=== PATIENT | female | born 1990 | race Caucasian/White ===

== ENCOUNTER 2016-08-18 17:50 | Emergency (ER) | payer OTHER ==
[~2016-08-18] VITALS: Ht 152.4 cm; Wt 59.9 kg
[~2016-08-18 17:50] MED LIST: ENDOCET 5-3251 EACH PO; IBUPROFEN800 MG PO; PRENATAL TABLE1 EAC3 PO; ZOFRAN ODT4 MG PO
[2016-08-18 18:54] LABS: HEMATOCRIT 42.1 % (36.0-46.0); MCHC 33.5 G/DL (30.0-36.0); MCV 86.6 FL (83-99); MEAN PLAT.VOLUME 9.3 uM^3 (9.5-12.4); PLATELET COUNT 222 K/uL (156-360); RBC DIS.WIDTH-CV 12.3 % (11.8-14.6); RBC DIS.WIDTH-SD 39.6 % (39-53); RED BLOOD COUNT 4.86 M/uL (3.80-5.20); WHITE BLOOD COUNT 8.6 K/uL (4.1-10.2)
[2016-08-18 19:10] LABS: CHLORIDE 112 mEq/L (99-109); POTASSIUM 3.8 mEq/L (3.7-5.4); SODIUM 142 mEq/L (136-147)
[2016-08-18 19:12] LABS: GLUCOSE 101 mg/dL (70-99)
[2016-08-18 19:14] LABS: ANION GAP 7 MEQ/L (2-14)
[2016-08-18 19:16] LABS: GFR ESTIMATE (CALCULATED) > 59 mL/min/
[2016-08-18 19:17] LABS: QUANTITATIVE HCG 5.6 MIU/ML; UREA NITROGEN (BUN) 11 mg/dL (9-23)
[2016-08-18 19:22] LABS: ADD MIUA? YES; BILIRUBIN NEGATIVE; BLOOD LARGE; COLOR YELLOW ((YELLOW)); GLUCOSE (STRIP) NEGATIVE; KETONES NEGATIVE; LEUKOCYTES TRACE; NITRITE NEGATIVE; PH, URINE 6.5 (5-8); PROTEIN (STRIP) 100; SPECIFIC GRAVITY 1.025 (1.000-1.030); UROBILINOGEN 0.2 MG/DL (0.2-1.0)
[2016-08-18 19:26] LABS: BACTERIA 2+ /HPF; EPITHELIAL CELLS RARE /HPF; MUCUS NONE SEEN /LPF; RED BLOOD CELLS TNTC /HPF (0-5); UCUL ADDED? YES
[2016-08-18 20:29] VITALS: BP 121/89
== END 2016-08-18 20:30 | disposition home or self-care (01) ==
LOC: EME 17:50
PROVIDERS: Physician Assistant
DX: O20.9 Hemorrhage in early pregnancy, unspecified (principal); Z3A.01 Less than 8 weeks gestation of pregnancy; Z91.040 Latex allergy status
CPT/HCPCS: 76801; 80048; 81003; 84702; 85027; 86850; 86900; 86901; 87086; 99281; 99284

== ENCOUNTER → 2016-08-22 | Outpatient (CLI) | payer OTHER ==
[~2016-08-22] VITALS: Ht 154.9 cm; Wt 60.0 kg
[2016-08-22 10:36] VITALS: BP 124/57
== END | disposition home or self-care (01) ==
LOC: IVINF 10:16
DX: O03.9 Complete or unspecified spontaneous abortion without complication (principal)
CPT/HCPCS: 96372

== ENCOUNTER → 2017-04-01 | Outpatient (CLI) | payer OTHER ==
[~2017-04-01] VITALS: Ht 155.4 cm; Wt 77.5 kg
[2017-04-01 09:32] VITALS: BP 120/77
== END | disposition home or self-care (01) ==
LOC: IVINF 09:26
DX: Z31.82 Encounter for Rh incompatibility status (principal); Z3A.28 28 weeks gestation of pregnancy; Z67.21 Type B blood, Rh negative
CPT/HCPCS: 96372; J2790

== ENCOUNTER 2017-04-26 22:05 | Emergency (ER) | payer OTHER ==
[~2017-04-26] VITALS: Ht 152.4 cm; Wt 84.9 kg
[2017-04-26 22:32] LABS: HEMATOCRIT 37.2 % (36.0-46.0); HEMOGLOBIN 12.8 G/DL (11.9-15.5); MCH 30.7 PG (29.0-34.0); MCHC 34.4 G/DL (30.0-36.0); MCV 89.2 FL (83-99); PLATELET COUNT 233 K/uL (156-360); RBC DIS.WIDTH-CV 13.3 % (11.8-14.6); RBC DIS.WIDTH-SD 43.7 % (39-53); RED BLOOD COUNT 4.17 M/uL (3.80-5.20); WHITE BLOOD COUNT 11.9 K/uL (4.1-10.2)
[2017-04-26 22:42] LABS: CHLORIDE 106 mEq/L (99-109); POTASSIUM 3.3 mEq/L (3.7-5.4)
[2017-04-26 22:43] LABS: SODIUM 137 mEq/L (136-147)
[2017-04-26 22:44] LABS: GLUCOSE 95 mg/dL (70-99)
[2017-04-26 22:48] LABS: CREATININE 0.7 mg/dL (0.6-1.3); GFR ESTIMATE (CALCULATED) > 59 mL/min/
[2017-04-26 22:49] LABS: UREA NITROGEN (BUN) 6 mg/dL (9-23)
[2017-04-26 22:52] LABS: TROP-I INTERPRETATION NEGATIVE; TROPONIN-I < 0.01 ng/mL (0.0-0.30)
[2017-04-26 23:00] LABS: QUANTITATIVE HCG 8810.5 MIU/ML
[2017-04-27 01:48] VITALS: BP 120/67
== END 2017-04-27 01:49 | disposition home or self-care (01) ==
LOC: EME 22:05
PROVIDERS: Physician Assistant
DX: O99.513 Diseases of the respiratory system complicating pregnancy, third trimester (principal); J11.1 Influenza due to unidentified influenza virus with other respiratory manifestations; O26.893 Other specified pregnancy related conditions, third trimester; R10.13 Epigastric pain; Z3A.32 32 weeks gestation of pregnancy; Z91.040 Latex allergy status
CPT/HCPCS: 71275; 80048; 84484; 84702; 85027; 87502; 93005; 99281; 99284; J2405

== ENCOUNTER 2017-05-30 15:50 | Outpatient (CLI) | payer OTHER ==
[2017-05-30 16:28] LABS: BASOPHIL (%) 0.2 % (0-1); EOSINOPHIL (%) 0.5 % (0-5); EOSINOPHIL COUNT 0.1 K/uL (0-0.3); HEMATOCRIT 39.3 % (36.0-46.0); HEMOGLOBIN 13.1 G/DL (11.9-15.5); IMMATURE GRANULOCYTE (%) 1.4 % (0.0-0.7); LYMPHOCYTE (%) 12.1 % (15-42); LYMPHOCYTE COUNT 1.5 K/uL (1.0-2.8); MCH 29.5 PG (29.0-34.0); MCHC 33.3 G/DL (30.0-36.0); MCV 88.5 FL (83-99); MONOCYTE (%) 7.4 % (3-12); NEUTROPHIL (%) 78.4 % (45-76); PLATELET COUNT 259 K/uL (156-360); RBC DIS.WIDTH-CV 13.8 % (11.8-14.6); RBC DIS.WIDTH-SD 44.5 % (39-53); RED BLOOD COUNT 4.44 M/uL (3.80-5.20); WHITE BLOOD COUNT 12.8 K/uL (4.1-10.2)
[2017-05-30 16:41] LABS: ALBUMIN 3.6 G/DL (3.2-4.8); CHLORIDE 106 MEQ/L (99-109); POTASSIUM 3.7 MEQ/L (3.7-5.4); SODIUM 136 MEQ/L (136-147); TOTAL BILIRUBIN 0.3 MG/DL (0.0-1.0)
[2017-05-30 16:44] VITALS: BP 113/66
[2017-05-30 16:46] LABS: ALKALINE PHOSPHATASE 121 IU/L (3-129); ALT (GPT) 7 IU/L (3-49); AST (GOT) 12 IU/L (2-34); CREATININE 0.5 MG/DL (0.6-1.3); GFR ESTIMATE (CALCULATED) > 59 mL/min/; GLUCOSE 88 mg/dL (70-99); TOTAL PROTEIN 6.7 G/DL (6.4-8.3); UREA NITROGEN (BUN) 6 mg/dL (9-23); URIC ACID 3.4 mg/dL (3.1-9.2)
[2017-05-30 17:15] VITALS: BP 106/62
[2017-05-30 18:05] LABS: UR CREATININE CONCENTRATION 160.1 MG/DL
== END 2017-05-30 18:40 | disposition home or self-care (01) ==
LOC: LDRP-OP 15:50 → 2WEST 15:51 → LDRP-OP 07-22 13:31
PROVIDERS: Advanced Practice Midwife
DX: O36.8130 Decreased fetal movements, third trimester, not applicable or unspecified (principal); O13.3 Gestational [pregnancy-induced] hypertension without significant proteinuria, third trimester; O26.893 Other specified pregnancy related conditions, third trimester; Z67.21 Type B blood, Rh negative; O34.219 Maternal care for unspecified type scar from previous cesarean delivery; Z86.19 Personal history of other infectious and parasitic diseases; Z3A.36 36 weeks gestation of pregnancy
CPT/HCPCS: 59025; 80053; 82570; 84156; 84550; 85025; G0378

== ENCOUNTER 2017-05-31 10:06 | Outpatient (CLI) | payer OTHER ==
[2017-05-31 10:18] VITALS: BP 109/59
== END 2017-05-31 13:14 | disposition home or self-care (01) ==
LOC: LDRP-OP 10:06 → 2WEST 10:07 → LDRP-OP 07-22 19:12
DX: O36.8130 Decreased fetal movements, third trimester, not applicable or unspecified (principal); Z3A.37 37 weeks gestation of pregnancy
CPT/HCPCS: 59025; 76818; G0378

== ENCOUNTER 2017-06-06 06:13 | Inpatient (IN) | payer OTHER ==
[2017-06-06] VITALS (7 sets, daily range): BP systolic 104–119; BP diastolic 52–60
[~2017-06-06] VITALS: Ht 152.4 cm; Wt 88.1 kg
[2017-06-06] MEDS ORDERED: ENDOCET 5-3251 EACH PO (09:10)
[2017-06-06] MEDS ORDERED: IBUPROFEN800 MG PO (09:10)
[2017-06-06 12:51] LABS: BASOPHIL (%) 0.1 % (0-1); EOSINOPHIL (%) 0 % (0-5); HEMOGLOBIN 11.3 G/DL (11.9-15.5); IMMATURE GRANULOCYTE (%) 0.8 % (0.0-0.7); LYMPHOCYTE (%) 4.3 % (15-42); LYMPHOCYTE COUNT 0.7 K/uL (1.0-2.8); MCH 30.1 PG (29.0-34.0); MCHC 34.2 G/DL (30.0-36.0); MCV 87.8 FL (83-99); MONOCYTE (%) 5.6 % (3-12); NEUTROPHIL (%) 89.2 % (45-76); NEUTROPHIL COUNT 15.3 K/uL (1.8-6.4); PLATELET COUNT 186 K/uL (156-360); RBC DIS.WIDTH-SD 44.9 % (39-53); RED BLOOD COUNT 3.76 M/uL (3.80-5.20); WHITE BLOOD COUNT 17.1 K/uL (4.1-10.2)
[2017-06-06 16:23] LABS: ALBUMIN 2.7 G/DL (3.2-4.8); ALKALINE PHOSPHATASE 101 IU/L (3-129); ALT (GPT) 7 IU/L (3-49); AST (GOT) 17 IU/L (2-34); CHLORIDE 106 MEQ/L (99-109); CREATININE 0.5 MG/DL (0.6-1.3); GFR ESTIMATE (CALCULATED) > 59 mL/min/; GLUCOSE 95 mg/dL (70-99); SODIUM 138 MEQ/L (136-147); TOTAL BILIRUBIN 0.4 MG/DL (0.0-1.0); TOTAL PROTEIN 4.9 G/DL (6.4-8.3); UREA NITROGEN (BUN) 5 mg/dL (9-23)
[2017-06-07 02:29] VITALS: BP 92/52
[2017-06-07 06:35] LABS: BASOPHIL (%) 0.1 % (0-1); EOSINOPHIL (%) 0.2 % (0-5); HEMATOCRIT 29.1 % (36.0-46.0); HEMOGLOBIN 9.4 G/DL (11.9-15.5); IMMATURE GRANULOCYTE (%) 0.6 % (0.0-0.7); LYMPHOCYTE (%) 7.9 % (15-42); MCH 29.1 PG (29.0-34.0); MCHC 32.3 G/DL (30.0-36.0); MCV 90.1 FL (83-99); MONOCYTE (%) 8.6 % (3-12); MONOCYTE COUNT 1.1 K/uL (0-0.8); NEUTROPHIL (%) 82.6 % (45-76); NEUTROPHIL COUNT 10.2 K/uL (1.8-6.4); PLATELET COUNT 167 K/uL (156-360); RBC DIS.WIDTH-CV 14.3 % (11.8-14.6); RED BLOOD COUNT 3.23 M/uL (3.80-5.20); WHITE BLOOD COUNT 12.4 K/uL (4.1-10.2)
[2017-06-07 07:38] VITALS: BP 107/55
[2017-06-07 10:48] VITALS: BP 101/56
[2017-06-07 14:11] VITALS: BP 101/110
[2017-06-07 19:30] VITALS: BP 115/59
[2017-06-07 23:00] VITALS: BP 114/71
[2017-06-08 02:30] VITALS: BP 106/55
[2017-06-08 07:50] VITALS: BP 128/61
== END 2017-06-08 16:12 | disposition home or self-care (01) | DRG 766 ==
LOC: LDRP-OP → 2WEST 06:14 → LDRP-OP 07-22 05:53
PROVIDERS: Nurse Practitioner; Obstetrics & Gynecology Gynecology
DX: O34.211 Maternal care for low transverse scar from previous cesarean delivery (principal); O76 Abnormality in fetal heart rate and rhythm complicating labor and delivery; O33.9 Maternal care for disproportion, unspecified; O62.1 Secondary uterine inertia; K66.0 Peritoneal adhesions (postprocedural) (postinfection); R31.0 Gross hematuria; Z37.0 Single live birth; Z3A.37 37 weeks gestation of pregnancy
CPT/HCPCS: 74430; 80053; 85025; 85460; 86850; 86870; 86900; 86901; 86905; 86920; J0690; J2274; J2405; J7120